=== PATIENT | female | born 1955 | race American Indian/Alaskan Native ===

== ENCOUNTER 2017-11-29 19:24 | Emergency (ER) | payer OTHER ==
[2017-11-29 20:04] LABS: Hematocrit 38.8 % (30.3-42.9); Hemoglobin 12.7 gm/dl (10.1-14.3); Mean Corpuscular HGB Conc 33 % (30-34); Mean Corpuscular Hemoglobin 28 pg (28-32); Mean Corpuscular Volume 85 fl (79-97); Platelet Count 262 K/mm3 (140-440); Red Blood Count 4.55 M/mm3 (3.65-5.03); Red Cell Distribution Width 15.1 % (13.2-15.2)
[2017-11-29 20:21] LABS: Albumin 3.9 g/dL (3.9-5); Calcium 9.8 mg/dL (8.4-10.2)
[2017-11-29 20:43] LABS: INR 0.86 (0.87-1.13)
[2017-11-29 20:44] LABS: BUN/Creatinine Ratio 19; Blood Urea Nitrogen 21 mg/dL (7-17); Calcium 9.8 mg/dL (8.4-10.2); Hemolysis Index 10; Partial Thromboplastin Time 26.7 Sec. (24.2-36.6)
--- NOTE | 2017-11-29 20:49 | Cat Scan Report ---
FINAL REPORT PROCEDURE: CT HEAD/BRAIN WO CON TECHNIQUE: Computerized tomography of the head was performed without contrast material. HISTORY: headache high BP COMPARISON: No prior studies are available for comparison. FINDINGS: Brain: Brain density appears normal. No evidence of intracranial hemorrhage. No parenchymal hemorrhage, mass lesions or mass effect are seen. No abnormal extraxial fluid collects or masses are seen. Ventricles: Ventricles are normal size and are midline. Bone Windows: No evidence of skull fracture. Paranasal sinuses: Visualized portions are clear. Mastoid air cells: Clear IMPRESSION: Negative examination. No acute or focal intracranial abnormalities are identified.
[2017-11-29] MEDS ORDERED: CATAPRES PO ONE (21:19)
[2017-11-29] MEDS ORDERED: TYLENOL ONE (21:25)
[2017-11-29] MEDS ORDERED: TYLENOL PO ONE (21:26)
--- NOTE | 2017-11-29 21:40 | Emergency Department Report ---
HPI - General Chief Complaint: High BP Time Seen by Provider: 11/29/17 21:14 - HPI HPI: Room 1 The patient is a 62-year-old female presenting with chief complaint of hypertension and headache. Patient states she's had a headache intermittently for the past 3 days affecting her frontal, occipital and calvarium region. The patient states she noticed her blood pressure was elevated last night and measured it at 186/130. Patient states she has not had her blood pressure medication for 3 weeks. The patient states she has prescriptions for them but there is been in an insurance issue preventing her from getting the medication. The patient currently gives her headache pain score of 8/10 Location: Head, see above Duration: [See above] Quality: Headache Severity: 8/10 Modifying factors: [see above] Context: [see above] Mode of transportation: The patient drove herself to the emergency department ED Past Medical Hx - Past Medical History Previous Medical History?: Yes Hx Hypertension: Yes Additional medical history: Bilateral Knee problems - Surgical History Past Surgical History?: Yes Additional Surgical History: 44 years ago cyst removed from left breast - Family History Family history: no significant - Social History Smoking Status: Never Smoker Substance Use Type: None (denies illicit drug use) - Medications Home Medications: Home Medications Medication Instructions Recorded Confirmed Last Taken Type NIFEdipine [Adalat cc] 60 mg PO QDAY 11/29/17 11/29/17 Unknown History Rosuvastatin Calcium [Crestor] 20 mg PO QDAY 11/29/17 11/29/17 Unknown History Valsartan [Diovan] 80 mg PO QDAY 11/29/17 11/29/17 Unknown History ED Review of Systems ROS: Stated complaint: HIGH BLOOD PRESSURE Other details as noted in HPI Constitutional: no symptoms reported Neurological: headache Physical Exam - Physical Exam Vital Signs: Vital Signs 11/29/17 11/29/17 11/29/17 19:33 19:55 19:56 Temperature 97.6 F Pulse Rate 92 H 77 Respiratory 18 16 16 Rate Blood Pressure 186/124 Blood Pressure 166/110 [Right] O2 Sat by Pulse 98 100 100 Oximetry 11/29/17 20:58 Temperature Pulse Rate 73 Respiratory 16 Rate Blood Pressure Blood Pressure 173/106 [Right] O2 Sat by Pulse 96 Oximetry Physical Exam: GENERAL: The patient is well-developed well-nourished female lying on stretcher not appear to be in acute distress. [] HEENT: Normocephalic. Atraumatic. Extraocular motions are intact. Patient has moist mucous membranes. NECK: Supple. Trachea midline CHEST/LUNGS: Clear to auscultation. There is no respiratory distress noted. HEART/CARDIOVASCULAR: Regular. There is no tachycardia. There is no gallop rub or murmur. ABDOMEN: Abdomen is soft, nontender. Patient has normal bowel sounds. There is no abdominal distention. SKIN: There is no rash. There is no edema. There is no diaphoresis. NEURO: The patient is awake, alert, and oriented. The patient is cooperative. The patient has no focal neurologic deficits. The patient has normal speech. Cranial nerves II through XII grossly intact, no drift. MUSCULOSKELETAL: There is no evidence of acute injury. ED Course Vital Signs 11/29/17 11/29/17 11/29/17 19:33 19:55 19:56 Temperature 97.6 F Pulse Rate 92 H 77 Respiratory 18 16 16 Rate Blood Pressure 186/124 Blood Pressure 166/110 [Right] O2 Sat by Pulse 98 100 100 Oximetry 11/29/17 20:58 Temperature Pulse Rate 73 Respiratory 16 Rate Blood Pressure Blood Pressure 173/106 [Right] O2 Sat by Pulse 96 Oximetry ED Medical Decision Making - Lab Data Result diagrams: 11/29/17 19:51 11/29/17 20:00 Laboratory Tests 11/29/17 11/29/17 11/29/17 19:51 19:51 20:00 WBC 4.7 RBC 4.55 Hgb 12.7 Hct 38.8 MCV 85 MCH 28 MCHC 33 RDW 15.1 Plt Count 262 PT 12.1 L INR 0.86 L APTT 26.7 Sodium 141 Potassium 3.5 L Chloride 102.9 Carbon Dioxide 27 Anion Gap 15 BUN 21 H Creatinine 1.2 Estimated GFR 55 BUN/Creatinine Ratio 18 Glucose 92 Calcium 9.8 Total Bilirubin 0.30 AST 25 ALT 19 Alkaline Phosphatase 87 Total Protein 7.4 Albumin 3.9 Albumin/Globulin Ratio 1.1 11/29/17 20:00 WBC RBC Hgb Hct MCV MCH MCHC RDW Plt Count PT INR APTT Sodium 142 Potassium 3.4 L Chloride 102.6 Carbon Dioxide 26 Anion Gap 17 BUN 21 H Creatinine 1.1 Estimated GFR > 60 BUN/Creatinine Ratio 19 Glucose 79 Calcium 9.8 Total Bilirubin AST ALT Alkaline Phosphatase Total Protein Albumin Albumin/Globulin Ratio - Radiology Data Radiology results: report reviewed (CT head), image reviewed (CT head) CT head (read by radiologist)-normal examination - Differential Diagnosis ICH, hypertensive urgency, Critical care attestation.: If time is entered above; I have spent that time in minutes in the direct care of this critically ill patient, excluding procedure time. ED Disposition Clinical Impression: Hypertension, Headache Disposition: [id number] TO HOME OR SELFCARE Is pt being admited?: No Does the pt Need Aspirin: No Condition: Stable Instructions: Hypertension (ED) Additional Instructions: Return to the emergency department immediately should you develop worsening symptoms, fever, inability to tolerate food or liquid or any other concerns. Referrals: BAHMAN JACOME MD [Primary Care Provider] - 3-5 Days Time of Disposition: 21:49
[2017-11-29] MEDS ORDERED: NON-FORMULARY (Nifedipine [Adalat Cc] 60 MG) PO SCH (21:45)
[2017-11-29] MEDS ORDERED: NON-FORMULARY (Nifedipine [Adalat Cc] 60 MG) PO ONE (21:47)
[2017-11-29] MEDS ORDERED: NON-FORMULARY (Valsartan [Diovan] 80 MG) PO ONE (21:48)
[2017-11-29] MEDS ORDERED: PROCARDIA XL PO SCH (22:00)
[2017-11-29] MEDS ORDERED: DIOVAN PO SCH (22:00)
[2017-11-29] MEDS ORDERED: NON-FORMULARY (Valsartan [Diovan] 80 MG) PO SCH (22:00)
[2017-11-29 23:00] VITALS: BP 135/94
== END 2017-11-29 22:59 | disposition home or self-care (01) ==
LOC: ED 19:24
DX: I10 Essential (primary) hypertension (principal)
CPT/HCPCS: 36415; 70450; 80048; 80053; 85027; 85610; 85730; 99284